=== PATIENT | male | born 1955 | race Caucasian/White ===

== ENCOUNTER 2021-12-19 00:23 | Emergency (ER) | payer BC, MEDICAID ==
[2021-12-19] MEDS ORDERED: Ondansetron 4 MG Tab.DIS PO ONE (01:14)
[2021-12-19] MEDS ORDERED: Meclizine 25 MG Tab PO ONE (01:14)
[2021-12-19 01:43] LABS: ESTIMATED GFR 85 mL/min (>60)
== END 2021-12-19 02:19 | disposition home or self-care (01) ==
LOC: JP.ED 00:23
DX: H81.12 Benign paroxysmal vertigo, left ear (principal); H93.3X2 Disorders of left acoustic nerve; I10 Essential (primary) hypertension; E11.9 Type 2 diabetes mellitus without complications; Z79.82 Long term (current) use of aspirin; Z79.899 Other long term (current) drug therapy; Z79.84 Long term (current) use of oral hypoglycemic drugs
CPT/HCPCS: 36415; 70450; 80053; 85025; 86140; 99284; A9270-GY; Q0162